=== PATIENT | male | born 1985 | race Caucasian/White ===

== ENCOUNTER 2019-01-19 14:22 | Emergency (ER) | payer SELFPAY ==
[~2019-01-19] VITALS: Ht 175.3 cm; Wt 72.6 kg
[2019-01-19 14:24] VITALS: BP 121/84
--- NOTE | 2019-01-19 14:28 | NUR ---
PT TO SHE LOCKE FOR AVAILABLE ROOM FOR MD ARAGON
--- NOTE | 2019-01-19 14:29 | NUR ---
PT LEFT LOBBY WITHOUT BEING SEEN BY ER MD. NO FURTHER CARE PROVIDED FOR PATIENT.
== END 2019-01-19 14:30 | disposition left against medical advice (07) ==
LOC: MED 14:22
DX: R53.1 Weakness (principal); Z53.21 Procedure and treatment not carried out due to patient leaving prior to being seen by health care provider